=== PATIENT | female | born 1980 | race Caucasian/White ===

== ENCOUNTER → 2016-03-09 | Outpatient (REF) | payer BC, OTHER ==
[~2016-03-09] MED LIST: ALBU17IN INH; IRON325T PO; PRED10TA PO; VITA200038 PO; ZITHTAB PO
[2016-03-09 11:50] LABS: MEAN CORPUSCULAR HEMOGLOBIN 25.4 pg (27.0-33.0); MEAN CORPUSCULAR HGB CONC 31.6 g/dl (32.0-36.5); MEAN CORPUSCULAR VOLUME 80.4 fl (80.0-96.0); RED CELL DISTRIBUTION WIDTH 13.4 % (11.5-14.5); WHITE BLOOD COUNT 7.2 K/mm3 (4.0-10.0)
[2016-03-09 12:31] LABS: ALBUMIN 3.8 GM/DL (3.2-5.2); ALBUMIN/GLOBULIN RATIO 1.15 (1.00-1.93); ALKALINE PHOSPHATASE 87 U/L (45-117); ALT/SGPT 31 U/L (12-78); ANION GAP 12 MEQ/L (8-16); AST/SGOT 16 U/L (15-37); BILIRUBIN,TOTAL 0.5 MG/DL (0.2-1.0); BLOOD UREA NITROGEN 12 MG/DL (7-18); CALCIUM LEVEL 8.6 MG/DL (8.5-10.1); CARBON DIOXIDE LEVEL 25 MEQ/L (21-32); CHLORIDE LEVEL 105 MEQ/L (98-107); GLOMERULAR FILTRATION RATE > 60.0 (>60); GLUCOSE, FASTING 196 MG/DL (70-105); SODIUM LEVEL 142 MEQ/L (136-145); TOTAL PROTEIN 7.1 GM/DL (6.4-8.2)
== END ==
LOC: M SFHCPLAZ 10:12
PROVIDERS: ATTEND Nurse Practitioner Adult Health
DX: Z86.2 Personal history of diseases of the blood and blood-forming organs and certain disorders involving the immune mechanism (principal); R73.9 Hyperglycemia, unspecified; R07.9 Chest pain, unspecified

== ENCOUNTER → 2016-09-06 | Outpatient (REF) | payer BC, OTHER | LOC: M SFHCPLAZ 14:50 | PROVIDERS: ATTEND Nurse Practitioner Adult Health | DX: Z00.00 Encounter for general adult medical examination without abnormal findings (principal); E55.9 Vitamin D deficiency, unspecified; Z86.2 Personal history of diseases of the blood and blood-forming organs and certain disorders involving the immune mechanism; E11.9 Type 2 diabetes mellitus without complications ==

== ENCOUNTER → 2016-09-07 | Outpatient (REF) | payer BC, OTHER ==
[2016-09-07 11:35] LABS: MEAN CORPUSCULAR HEMOGLOBIN 25.5 pg (27.0-33.0); MEAN CORPUSCULAR HGB CONC 31.6 g/dl (32.0-36.5); MEAN CORPUSCULAR VOLUME 80.6 fl (80.0-96.0); RED CELL DISTRIBUTION WIDTH 13.3 % (11.5-14.5); WHITE BLOOD COUNT 7.4 K/mm3 (4.0-10.0)
[2016-09-07 11:54] LABS: ALBUMIN 3.6 GM/DL (3.2-5.2); ALBUMIN/GLOBULIN RATIO 0.97 (1.00-1.93); ALKALINE PHOSPHATASE 77 U/L (45-117); ALT/SGPT 56 U/L (12-78); ANION GAP 4 MEQ/L (8-16); AST/SGOT 52 U/L (15-37); BILIRUBIN,TOTAL 0.5 MG/DL (0.2-1.0); BLOOD UREA NITROGEN 10 MG/DL (7-18); CALCIUM LEVEL 8.6 MG/DL (8.5-10.1); CARBON DIOXIDE LEVEL 30 MEQ/L (21-32); CHLORIDE LEVEL 105 MEQ/L (98-107); CREATININE FOR GFR 0.94 MG/DL (0.55-1.02); FERRITIN 98 NG/ML (8-252); GLOMERULAR FILTRATION RATE > 60.0 (>60); GLUCOSE, FASTING 89 MG/DL (70-105); PERCENT SATURATION 15.9 % (13.2-37.4); POTASSIUM SERUM 4.2 MEQ/L (3.5-5.1); SODIUM LEVEL 139 MEQ/L (136-145); TOTAL IRON BINDING CAPACITY 314 UG/DL (250-450); TOTAL PROTEIN 7.3 GM/DL (6.4-8.2)
== END ==
LOC: M SFHCPLAZ 07:52
PROVIDERS: ATTEND Nurse Practitioner Adult Health
DX: Z00.00 Encounter for general adult medical examination without abnormal findings (principal); Z86.2 Personal history of diseases of the blood and blood-forming organs and certain disorders involving the immune mechanism; E11.9 Type 2 diabetes mellitus without complications; E55.9 Vitamin D deficiency, unspecified

== ENCOUNTER → 2016-12-02 | Outpatient (REF) | payer BC | LOC: M SFHCWAGY 09:49 | PROVIDERS: ATTEND Nurse Practitioner Family | DX: Z12.4 Encounter for screening for malignant neoplasm of cervix (principal); A59.01 Trichomonal vulvovaginitis ==

== ENCOUNTER → 2016-12-02 | Outpatient (REF) | payer BC | LOC: M LAB REF 15:58 | PROVIDERS: ATTEND Nurse Practitioner Family | DX: Z11.3 Encounter for screening for infections with a predominantly sexual mode of transmission (principal) ==

== ENCOUNTER → 2017-03-06 | Outpatient (REF) | payer BC ==
[2017-03-06 12:09] LABS: HEMATOCRIT 38.8 % (36.0-47.0); HEMOGLOBIN 11.9 g/dl (12.0-16.0); MEAN CORPUSCULAR HEMOGLOBIN 24.1 pg (27.0-33.0); MEAN CORPUSCULAR HGB CONC 30.7 g/dl (32.0-36.5); MEAN CORPUSCULAR VOLUME 78.5 fl (80.0-96.0); PLATELET COUNT, AUTOMATED 237 10^3/uL (150-450); RED BLOOD COUNT 4.94 10^6/uL (4.00-5.40); RED CELL DISTRIBUTION WIDTH 14.2 % (11.5-14.5); WHITE BLOOD COUNT 7.3 10^3/uL (4.0-10.0)
[2017-03-06 12:28] LABS: ALBUMIN 3.7 GM/DL (3.2-5.2); ALBUMIN/GLOBULIN RATIO 1.06 (1.00-1.93); ALKALINE PHOSPHATASE 79 U/L (45-117); ALT/SGPT 22 U/L (12-78); ANION GAP 6 MEQ/L (8-16); AST/SGOT 16 U/L (7-37); BILIRUBIN,TOTAL 0.8 MG/DL (0.2-1.0); BLOOD UREA NITROGEN 9 MG/DL (7-18); CALCIUM LEVEL 8.4 MG/DL (8.5-10.1); CARBON DIOXIDE LEVEL 28 MEQ/L (21-32); CHLORIDE LEVEL 105 MEQ/L (98-107); CHOLESTEROL LEVEL 186 MG/DL (<200); CHOLESTEROL RISK RATIO 4.536 (<5); CREATININE FOR GFR 0.92 MG/DL (0.55-1.02); FERRITIN 112 NG/ML (8-252); GLOMERULAR FILTRATION RATE > 60.0 (>60); GLUCOSE, FASTING 110 MG/DL (70-105); HDL CHOLESTEROL 41 MG/DL (>40); IRON (FE) 83 UG/DL (50-170); LDL CHOLESTEROL 127.2 MG/DL (<100); NON-HDL-C 145 MG/DL; PERCENT SATURATION 26.8 % (13.2-45.0); POTASSIUM SERUM 4.3 MEQ/L (3.5-5.1); SODIUM LEVEL 139 MEQ/L (136-145); TOTAL IRON BINDING CAPACITY 310 UG/DL (250-450); TOTAL PROTEIN 7.2 GM/DL (6.4-8.2); TRIGLYCERIDES LEVEL 89 MG/DL (<150)
[2017-03-06 13:30] LABS: MALB URINE SIEMENS 37.9 MG/L; MAU/CREAT RATIO 23.8 MCG/MG (0.0-30.0)
[2017-03-06 15:03] LABS: ESTIMATED AVERAGE GLUCOSE 143 MG/DL (60-110); HEMOGLOBIN A1c 6.6 %
== END ==
LOC: M SFHCPLAZ 08:46
DX: E11.9 Type 2 diabetes mellitus without complications (principal); Z86.2 Personal history of diseases of the blood and blood-forming organs and certain disorders involving the immune mechanism; E78.2 Mixed hyperlipidemia
CPT/HCPCS: 83550

== ENCOUNTER → 2017-09-12 | Outpatient (REF) | payer BC ==
[2017-09-12 11:48] LABS: HEMATOCRIT 39.6 % (36.0-47.0); HEMOGLOBIN 12.4 g/dl (12.0-15.5); MEAN CORPUSCULAR HEMOGLOBIN 24.3 pg (27.0-33.0); MEAN CORPUSCULAR HGB CONC 31.3 g/dl (32.0-36.5); MEAN CORPUSCULAR VOLUME 77.6 fl (80.0-96.0); PLATELET COUNT, AUTOMATED 250 10^3/uL (150-450); RED CELL DISTRIBUTION WIDTH 13.8 % (11.5-14.5); WHITE BLOOD COUNT 6.7 10^3/uL (4.0-10.0)
[2017-09-12 12:24] LABS: CREATININE, URINE 67.9 MG/DL; MALB URINE SIEMENS 9.9 MG/L; MAU/CREAT RATIO 14.5 MCG/MG (0.0-30.0)
[2017-09-12 12:54] LABS: TOTAL 25(OH) VITAMIN D 24.9 NG/ML (30.0-100.0)
[2017-09-12 12:56] LABS: ALBUMIN 3.4 GM/DL (3.2-5.2); ALBUMIN/GLOBULIN RATIO 0.87 (1.00-1.93); ALKALINE PHOSPHATASE 89 U/L (45-117); ALT/SGPT 24 U/L (12-78); ANION GAP 8 MEQ/L (8-16); AST/SGOT 15 U/L (7-37); BILIRUBIN,TOTAL 0.5 MG/DL (0.2-1.0); BLOOD UREA NITROGEN 9 MG/DL (7-18); CALCIUM LEVEL 8.4 MG/DL (8.5-10.1); CARBON DIOXIDE LEVEL 28 MEQ/L (21-32); CHLORIDE LEVEL 107 MEQ/L (98-107); CHOLESTEROL LEVEL 183 MG/DL (<200); CHOLESTEROL RISK RATIO 4.945 (<5); CREATININE FOR GFR 0.95 MG/DL (0.55-1.30); GLOMERULAR FILTRATION RATE > 60.0 (>60); GLUCOSE, FASTING 90 MG/DL (70-100); HDL CHOLESTEROL 37 MG/DL (>40); IRON (FE) 65 UG/DL (50-170); LDL CHOLESTEROL 128.6 MG/DL (<100); NON-HDL-C 146 MG/DL; PERCENT SATURATION 20.9 % (13.2-45.0); POTASSIUM SERUM 4.4 MEQ/L (3.5-5.1); SODIUM LEVEL 143 MEQ/L (136-145); THYROID STIMULATING HORMONE 0.857 uIU/ML (0.358-3.740); TOTAL IRON BINDING CAPACITY 311 UG/DL (250-450); TOTAL PROTEIN 7.3 GM/DL (6.4-8.2); TRIGLYCERIDES LEVEL 87 MG/DL (<150)
[2017-09-12 13:27] LABS: ESTIMATED AVERAGE GLUCOSE 160 MG/DL (60-110); HEMOGLOBIN A1c 7.2 %
== END ==
LOC: M SFHCPLAZ 09:06
DX: E11.9 Type 2 diabetes mellitus without complications (principal); E78.2 Mixed hyperlipidemia; Z86.2 Personal history of diseases of the blood and blood-forming organs and certain disorders involving the immune mechanism; E55.9 Vitamin D deficiency, unspecified
CPT/HCPCS: 83550

== ENCOUNTER → 2018-03-13 | Outpatient (REF) | payer BC ==
[2018-03-13 12:22] LABS: MAU/CREAT RATIO 10.7 MCG/MG (0.0-30.0)
[2018-03-13 12:47] LABS: ALBUMIN 3.7 GM/DL (3.2-5.2); ALT/SGPT 28 U/L (12-78); BILIRUBIN,TOTAL 0.6 MG/DL (0.2-1.0); BLOOD UREA NITROGEN 11 MG/DL (7-18); CALCIUM LEVEL 8.7 MG/DL (8.5-10.1); CARBON DIOXIDE LEVEL 25 MEQ/L (21-32); CHLORIDE LEVEL 103 MEQ/L (98-107); CREATININE FOR GFR 0.93 MG/DL (0.55-1.30); GLOMERULAR FILTRATION RATE > 60.0 (>60); GLUCOSE, FASTING 106 MG/DL (70-100); POTASSIUM SERUM 4.6 MEQ/L (3.5-5.1); SODIUM LEVEL 140 MEQ/L (136-145); TOTAL PROTEIN 7.7 GM/DL (6.4-8.2)
[2018-03-13 13:44] LABS: HEMOGLOBIN A1c 7.7 %
== END ==
LOC: M SFHCPLAZ 08:13
PROVIDERS: ATTEND Nurse Practitioner Adult Health
DX: E11.9 Type 2 diabetes mellitus without complications (principal)

== ENCOUNTER → 2018-03-29 | Outpatient (REF) | payer BC ==
[2018-04-03 14:17] LABS: HPV HYBRID CAPTURE II Positive (Negative)
== END ==
LOC: M SFHCWAGY 12:02
PROVIDERS: ATTEND Nurse Practitioner Family
DX: Z12.4 Encounter for screening for malignant neoplasm of cervix (principal)
CPT/HCPCS: 87624; G0123

== ENCOUNTER → 2018-04-02 | Outpatient (CLI) | payer BC ==
--- NOTE | 2018-04-02 16:36 | REPMRS ---
Patient History The patient states she had a clinical breast exam in 03/17 Family history of breast cancer at age 55 in mother, breast cancer at age 50 or over in maternal aunt, unknown cancer at age 50 or over in paternal grandmother, unknown cancer at age 50 or over in paternal grandfather, unknown cancer at age 39 in paternal aunt. Taking hormonal contraceptives for 11 years. Digital Woman Screen Mammo: April 02, 2018 - Exam #: [id number] Bilateral CC and MLO view(s) were taken. Technologist: Susan Morris, Technologist Prior study comparison: February 08, 2013, digital mammo diagnostic bilateral, performed at [facility]. FINDINGS: There are scattered fibroglandular densities. There has been no change in the appearance of the mammogram from the prior studies. There is a mild amount of scattered fibroglandular density which is fairly symmetric. There is no interval development of dominant mass, architectural distortion, or clustered microcalcification suggestive of malignancy. 3-D tomosynthesis shows no additional findings. Assessment: BI-RADS/ACR category 1 mammogram. Negative Mammogram. Recommendation Breast MRI of both breasts in 6 months. Routine screening mammogram of both breasts in 1 year (for women over age 40). This patient's Lifetime Breast Cancer RIsk is estimated at 22.5 %. Annual screening Breast MRI scanniing is recommended for patient's whose lifetime risk assessment is over 20%. This mammogram was interpreted with the aid of an FDA-approved computer-aided dectection system. Electronically Signed By: Travon Dhillon MD 04/02/18 [id number]
== END ==
LOC: M WHC 14:39
PROVIDERS: ATTEND Nurse Practitioner Family
DX: Z12.31 Encounter for screening mammogram for malignant neoplasm of breast (principal); Z80.3 Family history of malignant neoplasm of breast

== ENCOUNTER → 2018-06-19 | Outpatient (CLI) | payer BC ==
[~2018-06-19] MED LIST changes: +PRED-351 PO; -PRED10TA PO
[2018-06-19 12:27] LABS: HEMOGLOBIN A1c 7.7 %
== END ==
LOC: M LRY 09:50
PROVIDERS: ATTEND Nurse Practitioner Adult Health
DX: E11.9 Type 2 diabetes mellitus without complications (principal)

== ENCOUNTER → 2018-09-11 | Outpatient (REF) | payer BC ==
[2018-09-11 10:34] LABS: ALBUMIN 3.8 GM/DL (3.2-5.2); ALT/SGPT 23 U/L (12-78); BILIRUBIN,TOTAL 0.5 MG/DL (0.2-1.0); BLOOD UREA NITROGEN 14 MG/DL (7-18); CALCIUM LEVEL 8.8 MG/DL (8.5-10.1); CARBON DIOXIDE LEVEL 27 MEQ/L (21-32); CHLORIDE LEVEL 105 MEQ/L (98-107); CHOLESTEROL LEVEL 194 MG/DL (<200); CHOLESTEROL RISK RATIO 5.105 (<5); CREATININE FOR GFR 1.01 MG/DL (0.55-1.30); GLOMERULAR FILTRATION RATE > 60.0 (>60); GLUCOSE, FASTING 124 MG/DL (70-100); HDL CHOLESTEROL 38 MG/DL (>40); LDL CHOLESTEROL 140 MG/DL (<100); NON-HDL-C 156 MG/DL; POTASSIUM SERUM 4.4 MEQ/L (3.5-5.1); SODIUM LEVEL 139 MEQ/L (136-145); TOTAL PROTEIN 7.7 GM/DL (6.4-8.2); TRIGLYCERIDES LEVEL 82 MG/DL (<150)
[2018-09-11 10:35] LABS: TOTAL 25(OH) VITAMIN D 19.5 NG/ML (30.0-100.0)
[2018-09-11 10:38] LABS: MALB URINE SIEMENS 21.1 MG/L; MAU/CREAT RATIO 10.1 MCG/MG (0.0-30.0)
[2018-09-11 11:36] LABS: HEMOGLOBIN A1c 7.7 %
== END ==
LOC: M SFHCPLAZ 07:55
PROVIDERS: ATTEND Nurse Practitioner Adult Health
DX: Z00.00 Encounter for general adult medical examination without abnormal findings (principal); E11.9 Type 2 diabetes mellitus without complications; E55.9 Vitamin D deficiency, unspecified

== ENCOUNTER → 2018-11-13 | Outpatient (REF) | payer BC ==
[2018-11-13 12:20] LABS: BASO # 0.1 10^3/uL (0.0-0.2); BASO % 0.6 % (0.0-1.0); EOS # 0.2 10^3/uL (0.0-0.5); EOS % 2.8 % (0.0-3.0); HEMATOCRIT 38.7 % (36.0-47.0); HEMOGLOBIN 11.8 g/dl (12.0-15.5); LYMPH # 3.1 10^3/uL (1.5-5.0); LYMPH % 37.6 % (24.0-44.0); MEAN CORPUSCULAR HGB CONC 30.5 g/dl (32.0-36.5); MEAN CORPUSCULAR VOLUME 78.7 fl (80.0-96.0); MONO # 0.6 10^3/uL (0.0-0.8); MONO % 7.3 % (0.0-5.0); NEUTROPHILS # 4.3 10^3/uL (1.5-8.5); NEUTROPHILS % 51.5 % (36.0-66.0); PLATELET COUNT, AUTOMATED 232 10^3/uL (150-450); RED BLOOD COUNT 4.92 10^6/uL (4.00-5.40); WHITE BLOOD COUNT 8.3 10^3/uL (4.0-10.0)
== END ==
LOC: M LABDRAWP 08:57
PROVIDERS: ATTEND Orthopaedic Surgery
DX: Z01.818 Encounter for other preprocedural examination (principal); G56.00 Carpal tunnel syndrome, unspecified upper limb

== ENCOUNTER → 2018-12-18 | Outpatient (CLI) | payer BC ==
--- NOTE | 2018-12-18 17:55 | REP ---
BILATERAL MAMMOGRAM WITH 3D TOMOSYNTHESIS, BILATERAL DIAGNOSTIC MAMMOGRAM AND ULTRASOUND: FAMILY HISTORY: Breast cancer in mother at age 48 and maternal aunt at age 50. Micah Aponte lifetime risk of breast cancer 22.9%. COMPARISON: Mammogram 04/02/2018 as well as other prior studies 04/11/2012. Patient reports a palpable lump about 12-o'clock right breast and also in the left axilla. Those areas are marked on the skin with triangular skin markers. The routine and tomographic images show mild to moderate scattered fibroglandular tissue bilaterally which is unchanged. No new mass or clustered microcalcifications are seen. No architectural distortion is seen. Normal appearing axillary lymph nodes are seen bilaterally. No mammographic abnormality is seen in the region of 12-o'clock right breast. Real-time sonographic evaluation of 12-o'clock right breast demonstrates no cystic or solid nodule. Real-time sonographic evaluation of the left axillary region demonstrates a normal appearing lymph node with a fatty hilum measuring 2.9 x 1.0 x 1.5 cm. This is upper limits of normal in size. IMPRESSION: ACR 2 benign. No mass or clustered microcalcifications bilaterally. There is no mammographic or sonographic evidence of a mass at the site of the reported palpable lump 12-o'clock right breast. In the left axillary region at the site of the palpable lump there is a normal appearing lymph node which is upper limits of normal in size at 1 cm in short axis dimension. Given the elevated lifetime risk of breast cancer I would recommend supplemental screening MRI of the breasts. BIRADS 2: BI-RADS/ACR category 2 mammogram. Benign Findings. This mammogram was interpreted with the aid of an FDA-approved computer-aided detection system. The patient states she/he had a clinical breast exam in 11/2018. The patient letter being requested is M2. Electronically Signed by John Reyez MD 12/19/2018 02:17 P
== END ==
LOC: M RAD 14:25
PROVIDERS: ATTEND Nurse Practitioner Family
DX: N63.10 Unspecified lump in the right breast, unspecified quadrant (principal); N63.20 Unspecified lump in the left breast, unspecified quadrant; Z80.3 Family history of malignant neoplasm of breast
CPT/HCPCS: 76642; 77066; G0279

== ENCOUNTER → 2019-01-09 | Outpatient (REF) | payer BC ==
[2019-01-09 16:15] LABS: BLOOD UREA NITROGEN 10 MG/DL (7-18); CREATININE FOR GFR 0.89 MG/DL (0.55-1.30); GLOMERULAR FILTRATION RATE > 60.0 (>60)
== END ==
LOC: M SFHCWAGY 12:13
PROVIDERS: ATTEND Nurse Practitioner Family
DX: Z91.89 Other specified personal risk factors, not elsewhere classified (principal)

== ENCOUNTER → 2019-01-15 | Outpatient (CLI) | payer BC ==
[~2019-01-15] MED LIST changes: +PROHANCE 279.3MG/ML 15ML VIAL (A9576) As Ordered ONE; +PROHANCE 279.3MG/ML 5ML VIAL (A9576) As Ordered ONE
--- NOTE | 2019-01-15 13:35 | REP ---
BILATERAL MRI BREAST WITH AND WITHOUT CONTRAST: Breast cancer in mother at age 48 and maternal aunt at age 50, lifetime risk of breast cancer 22.9% based on Tyrer-Cuzick model. Comparison mammogram 12/18/2018. TECHNIQUE: Multiple sequences obtained in the axial, coronal, and sagittal planes prior to and follow the intravenous administration of 20 mL ProHance. Images are evaluated in the [employer] software including dynamic axial T1 fat sat images, subtraction images, color overlay images, and MIP reconstruction images. There is mild to moderate scattered fibroglandular tissue bilaterally. Multiple tiny cysts subcentimeter in diameter are seen bilaterally, more so on the left than on the right. No axillary adenopathy is seen. There is mild background parenchymal enhancement bilaterally. No suspicious enhancing mass or morphologic abnormality is seen. IMPRESSION: BIRADS category 2 benign bilateral breast MRI. No suspicious enhancing mass or morphologic abnormality. Yearly supplemental screening MRI of the breast is recommended for patients with an elevated lifetime risk of breast cancer 20% or greater, in addition to the annual screening mammogram. Electronically Signed by John Reyez MD 01/16/2019 10:31 A
== END ==
LOC: M RAD 08:59
PROVIDERS: ATTEND Nurse Practitioner Family
DX: N60.11 Diffuse cystic mastopathy of right breast (principal); N60.12 Diffuse cystic mastopathy of left breast; Z91.89 Other specified personal risk factors, not elsewhere classified
CPT/HCPCS: A9576; C8908

== ENCOUNTER → 2019-04-11 | Outpatient (REF) | payer BC ==
[~2019-04-11] MED LIST changes: +ATOR1TAB19 PO; +CELE20TA PO; +FLUT44IN INH; +FOLI1TAB11 PO; +HYDR-3713 PO; +METF-791 PO; -PROHANCE 279.3MG/ML 15ML VIAL (A9576) As Ordered ONE; -PROHANCE 279.3MG/ML 5ML VIAL (A9576) As Ordered ONE; +SING10TA32 PO; +VENTAER INH; +VITA500079 PO; +ZYRTTAB8 PO
== END ==
LOC: M SFHCWAGY 14:34
PROVIDERS: ATTEND Nurse Practitioner Family
DX: R87.810 Cervical high risk human papillomavirus (HPV) DNA test positive (principal); R87.610 Atypical squamous cells of undetermined significance on cytologic smear of cervix (ASC-US)
CPT/HCPCS: 87624; G0123

== ENCOUNTER → 2019-04-11 | Outpatient (CLI) | payer BC ==
[~2019-04-11] MED LIST changes: -HYDR-3713 PO
[2019-04-11 13:41] LABS: HEMATOCRIT 39.4 % (36.0-47.0); HEMOGLOBIN 12.1 g/dl (12.0-15.5); MEAN CORPUSCULAR HEMOGLOBIN 24.3 pg (27.0-33.0); MEAN CORPUSCULAR HGB CONC 30.7 g/dl (32.0-36.5); MEAN CORPUSCULAR VOLUME 79.3 fl (80.0-96.0); PLATELET COUNT, AUTOMATED 224 10^3/uL (150-450); RED BLOOD COUNT 4.97 10^6/uL (4.00-5.40); WHITE BLOOD COUNT 6.3 10^3/uL (4.0-10.0)
[2019-04-11 14:07] LABS: BLOOD UREA NITROGEN 12 MG/DL (7-18); CALCIUM LEVEL 8.7 MG/DL (8.5-10.1); CARBON DIOXIDE LEVEL 30 MEQ/L (21-32); CHLORIDE LEVEL 104 MEQ/L (98-107); CREATININE FOR GFR 0.83 MG/DL (0.55-1.30); GLOMERULAR FILTRATION RATE > 60.0 (>60); GLUCOSE, FASTING 103 MG/DL (70-100); POTASSIUM SERUM 4.5 MEQ/L (3.5-5.1); SODIUM LEVEL 139 MEQ/L (136-145)
[2019-04-11 14:12] LABS: HEMOGLOBIN A1c 7.6 %
== END ==
LOC: M PLALAB 11:15
PROVIDERS: ATTEND Family Medicine
DX: Z01.818 Encounter for other preprocedural examination (principal); E11.9 Type 2 diabetes mellitus without complications; R87.610 Atypical squamous cells of undetermined significance on cytologic smear of cervix (ASC-US); I10 Essential (primary) hypertension
CPT/HCPCS: 36415; 80048; 83036; 85027; 87624; G0123

== ENCOUNTER 2019-04-17 07:39 | Day surgery (SDC) | payer BC ==
[~2019-04-17] VITALS: Ht 180.3 cm; Wt 126.7 kg
[~2019-04-17 07:39] MED LIST changes: +LR 1,000 ML IV ONE; +ceFAZolin SOD 2 GM in IV 1 EA IV ONE
[2019-04-17] MEDS ORDERED: LIDOCAINE 2% INJ 100 MG/5 ML SDV (FOR ANES.) As Ordered ONE (08:03)
[2019-04-17] MEDS ORDERED: fentaNYL 100 MCG/2 ML INJECTION (J3010) As Ordered ONE ×2 (08:03→09:53)
[2019-04-17] MEDS ORDERED: KETOROLAC 60 MG/2 ML VIAL (J1885) As Ordered ONE (08:03)
[2019-04-17] MEDS ORDERED: MIDAZOLAM INJ 2 MG/2 ML VIAL (J2250) As Ordered ONE (08:03)
[2019-04-17] MEDS ORDERED: propofoL 200 MG/20 ML VIAL As Ordered ONE ×4 (08:03→10:00)
[2019-04-17] MEDS ORDERED: ONDANSETRON 4MG/2ML VIAL (J2405) As Ordered ONE (08:03)
[2019-04-17] MEDS ORDERED: dexameTHASONE 4 MG/ML 1ML VIAL (J1100) As Ordered ONE (08:39)
[2019-04-17] MEDS ORDERED: LIDOCAINE 1% MDV 20ML VIAL As Ordered ONE (08:39)
[2019-04-17] MEDS ORDERED: BUPIVACAINE HCL 0.5% 10 ML VIAL As Ordered ONE (08:39)
[2019-04-17] MEDS ORDERED: HYDR-3713 PO (10:08)
[2019-04-17 11:05] VITALS: BP 135/70
--- NOTE | 2019-04-18 08:57 | RO ---
DATE OF SURGERY: 04/17/2019 PREOPERATIVE DIAGNOSIS: Right foot bunion. POSTOPERATIVE DIAGNOSIS: Right foot bunion. PROCEDURES: Right foot bunionectomy with 1st metatarsal osteotomy. SURGEON: Hector Arce DPM VRT MECHANIC: None ANESTHESIA: Monitored anesthesia care with preoperative injection of 15 mL of a 1:1 mixture of 1% lidocaine plain and 0.5% Marcaine plain. ESTIMATED BLOOD LOSS: Minimal. MATERIALS: Arthrex 3.5 headless compression screw, 3-0 and 4-0 Vicryl, and 4-0 nylon. INJECTABLES: 1 mL Decadron 4 mg/mL. COMPLICATION: None. CONDITION: Stable. Karli Pulido is a 38-year-old female who presents to [facility] with painful bunion to her right foot. She presents today for surgical correction. The patient's side and site were identified and marked in the preoperative holding area. Consent was reviewed and obtained. All risks, complications, and alternatives to the procedure were explained to the patient in detail. All questions were answered. DESCRIPTION OF PROCEDURE: The patient was brought to the operating room and placed on the operating room table in supine position. Monitored anesthesia care was delivered by the anesthesia team. A preoperative injection of 15 mL of 1:1 mixture of 1% lidocaine plain and 0.5% Marcaine plain were injected to the right foot. The right foot was prepped and draped in the normal sterile fashion. A tourniquet was applied to the right ankle and inflated at 215 mmHg. A dorsomedial incision was drawn and carried through with a #15 blade. Dissection was carried down to the 1st metatarsophalangeal joint, and capsule was identified. A T capsulotomy was performed, exposing the metatarsal head. Following this, a lateral release was performed, releasing the lateral capsule, adductor tendon, and sesamoidal ligaments. McGlamry elevator was used to release the plantar structures. Following this, the medial eminence was resected with sagittal saw. An osteotomy was performed at the metatarsal head, transposing it laterally. This was fixated with an Arthrex 3.5 headless compression screw. The remaining bone ledge was removed with sagittal saw and smoothed with a rasp. The site was irrigated with normal saline. A wedge of capsule was removed from the medial capsule, and the capsular repair was then performed with 3-0 Vicryl, subcutaneous closure with 4-0 Vicryl, and skin closure with 4-0 nylon. 1 mL Decadron was injected. Sterile dressings were applied. Tourniquet was deflated. The patient was brought to postanesthesia care unit (PACU) with vital signs stable and neurovascular status intact. She will be partial weightbearing with crutches. She will followup in office in 2 days.
== END 2019-04-17 11:10 | disposition home or self-care (01) ==
LOC: M SDC 07:39
PROVIDERS: ATTEND Podiatrist Foot & Ankle Surgery
DX: M20.11 Hallux valgus (acquired), right foot (principal); E11.9 Type 2 diabetes mellitus without complications; M72.2 Plantar fascial fibromatosis; I49.3 Ventricular premature depolarization; E78.00 Pure hypercholesterolemia, unspecified; F41.9 Anxiety disorder, unspecified; F32.9 Major depressive disorder, single episode, unspecified; J45.909 Unspecified asthma, uncomplicated; G47.30 Sleep apnea, unspecified; Q63.0 Accessory kidney; Z91.018 Allergy to other foods; Z79.899 Other long term (current) drug therapy; Z79.51 Long term (current) use of inhaled steroids; Z79.82 Long term (current) use of aspirin
CPT/HCPCS: 28296; 81025; 88300; 97116; C1713; J0690; J1100; J1885; J2250; J2405; J3010

== ENCOUNTER → 2019-12-04 | Outpatient (CLI) | payer BC ==
[~2019-12-04] MED LIST changes: +HYDR-3713 PO; -LR 1,000 ML IV ONE; -METF-791 PO; +METF-838 PO; -ceFAZolin SOD 2 GM in IV 1 EA IV ONE
--- NOTE | 2020-01-13 09:03 | REP ---
INDICATION: BURNING CHEST PAIN COMPARISON: None. TECHNIQUE: PA and lateral. FINDINGS: The mediastinum and cardiac silhouette are normal. The lung muniz are clear and without acute consolidation, effusion, or pneumothorax. The skeletal structures are intact and normal. IMPRESSION: No acute cardiopulmonary process. Note: Examination was originally reported as negative on 12/05/2019 <Electronically signed by Ramon Jaramillo > 01/13/20 [id number]
== END ==
LOC: M WUC 17:09
PROVIDERS: ATTEND Nurse Practitioner Family
DX: R07.89 Other chest pain (principal)

== ENCOUNTER → 2019-12-06 | Outpatient (CLI) | payer BC ==
[2019-12-06 11:03] LABS: ALBUMIN 3.7 GM/DL (3.2-5.2); ALT/SGPT 22 U/L (12-78); BILIRUBIN,TOTAL 1.1 MG/DL (0.2-1.0); BLOOD UREA NITROGEN 13 MG/DL (7-18); CALCIUM LEVEL 8.6 MG/DL (8.5-10.1); CARBON DIOXIDE LEVEL 31 MEQ/L (21-32); CHLORIDE LEVEL 103 MEQ/L (98-107); CHOLESTEROL LEVEL 184 MG/DL (<200); CHOLESTEROL RISK RATIO 3.755 (<5); GLOMERULAR FILTRATION RATE > 60.0 (>60); GLUCOSE, FASTING 111 MG/DL (70-100); HDL CHOLESTEROL 49 MG/DL (>40); LDL CHOLESTEROL 124 MG/DL (<100); NON-HDL-C 135 MG/DL; POTASSIUM SERUM 4.2 MEQ/L (3.5-5.1); SODIUM LEVEL 138 MEQ/L (136-145); TOTAL PROTEIN 7.4 GM/DL (6.4-8.2); TRIGLYCERIDES LEVEL 54 MG/DL (<150)
[2019-12-06 11:04] LABS: TOTAL 25(OH) VITAMIN D 36.3 NG/ML (30.0-100.0)
[2019-12-06 11:21] LABS: HEMOGLOBIN A1c 6.5 %
[2019-12-06 11:27] LABS: MALB URINE SIEMENS 27.9 MG/L
== END ==
LOC: M WUC 08:37
PROVIDERS: ATTEND Nurse Practitioner Adult Health
DX: E55.9 Vitamin D deficiency, unspecified (principal); E11.9 Type 2 diabetes mellitus without complications; E78.2 Mixed hyperlipidemia; E66.9 Obesity, unspecified; Z68.39 Body mass index [BMI] 39.0-39.9, adult

== ENCOUNTER → 2020-01-17 | Outpatient (CLI) | payer SELFPAY | LOC: M LABSMTC 12:36 | PROVIDERS: ATTEND Pediatrics | DX: Z20.828 Contact with and (suspected) exposure to other viral communicable diseases (principal) ==

== ENCOUNTER → 2020-03-09 | Outpatient (REF) | payer BC, OTHER ==
[2020-03-09 13:02] LABS: ALBUMIN 3.6 GM/DL (3.2-5.2); ALT/SGPT 22 U/L (12-78); BILIRUBIN,TOTAL 0.6 MG/DL (0.2-1.0); BLOOD UREA NITROGEN 13 MG/DL (7-18); CALCIUM LEVEL 8.7 MG/DL (8.5-10.1); CARBON DIOXIDE LEVEL 28 MEQ/L (21-32); CHLORIDE LEVEL 105 MEQ/L (98-107); CHOLESTEROL LEVEL 168 MG/DL (<200); CREATININE FOR GFR 0.94 MG/DL (0.55-1.30); GLOMERULAR FILTRATION RATE > 60.0 (>60); GLUCOSE, FASTING 178 MG/DL (70-100); HDL CHOLESTEROL 42 MG/DL (>40); LDL CHOLESTEROL 106 MG/DL (<100); NON-HDL-C 126 MG/DL; POTASSIUM SERUM 4.3 MEQ/L (3.5-5.1); SODIUM LEVEL 139 MEQ/L (136-145); THYROID STIMULATING HORMONE 0.761 uIU/ML (0.358-3.740); TOTAL 25(OH) VITAMIN D 24.5 NG/ML (30.0-100.0); TRIGLYCERIDES LEVEL 98 MG/DL (<150)
[2020-03-09 13:12] LABS: MALB URINE SIEMENS 51.7 MG/L; MAU/CREAT RATIO 21.1 MCG/MG (0.0-30.0)
[2020-03-09 16:05] LABS: HEMOGLOBIN A1c 7.4 %
== END ==
LOC: M SFHCPLAZ 08:19
PROVIDERS: ATTEND Nurse Practitioner Adult Health
DX: Z00.00 Encounter for general adult medical examination without abnormal findings (principal); E78.2 Mixed hyperlipidemia; Z68.39 Body mass index [BMI] 39.0-39.9, adult; E11.9 Type 2 diabetes mellitus without complications; E55.9 Vitamin D deficiency, unspecified; E66.9 Obesity, unspecified

== ENCOUNTER → 2020-03-23 | Outpatient (CLI) | payer BC, OTHER ==
--- NOTE | 2020-03-23 11:27 | REP ---
INDICATION: CHAI DIAG MAMMO/N63.21 LUMP RIGHT BREAST; LUMP RIGHT BREAST. COMPARISON: Mammography comparison mammography February 08, 2013 and December 18, 2018. TECHNIQUE: Bilateral CC and MLO) view(s) were taken. A skin marker is affixed to the skin at the site of the palpable lump in the right breast and diagnostic magnified focal spot-compression images of the right breast were obtained. 3D tomography is obtained. Targeted right breast sonography is obtained. FINDINGS: Scattered fibroglandular elements are seen bilaterally. No suspicious or dominant density is seen. No abnormality is noted at the site of the palpable lump at approximately 12 o'clock position in the right breast or elsewhere on either side. Magnified focal spot-compression images show normal stromal density. No microcalcification or architectural distortion is seen. No worrisome skin change is appreciated. 3-D tomosynthesis shows no additional finding. The Volpara volumetric breast density pattern is B. Targeted right breast sonography: The superior and lateral and axillary tail regions of the right breast are examined sonographically. And the 12 o'clock position, there is a 5 mm simple cyst. Heterogeneous fibroglandular background echotexture is seen. In the right axilla there are 3 small normal appearing lymph nodes with thin cortical margins. No suspicious sonographic finding. IMPRESSION: BIRADS/ACR category benign mammographic and targeted right breast sonographic findings.. This patient's [facility] lifetime breast cancer risk assessment score is 22.7%. This mammogram was interpreted with the aid of an FDA-approved computer-aided detection system. The patient states she had a clinical breast exam in February of 2019.. The patient letter being requested is M2. RECOMMENDATION: Repeat screening mammography recommended 1 year (for women over 40). Patients whose estimated lifetime breast cancer risk assessment is greater than 20% merit annual screening breast MRI. Bilateral screening breast MRI scanning is recommended in 6 months. Clinical follow-up recommended for the palpable lump. <Electronically signed by Travon Dhillon > 03/23/20 [id number]
== END ==
LOC: M WHC 09:13
PROVIDERS: ATTEND Obstetrics & Gynecology
DX: R92.8 Other abnormal and inconclusive findings on diagnostic imaging of breast (principal); N63.31 Unspecified lump in axillary tail of the right breast; N60.01 Solitary cyst of right breast
CPT/HCPCS: 76642; 77066; G0279

== ENCOUNTER → 2020-05-05 | Outpatient (REF) | payer BC, OTHER | LOC: M SFHCWAGY 16:49 | PROVIDERS: ATTEND Nurse Practitioner Women's Health | DX: Z11.3 Encounter for screening for infections with a predominantly sexual mode of transmission (principal) | CPT/HCPCS: 87491; 87591; 87624; G0123 ==

== ENCOUNTER → 2020-05-07 | Outpatient (CLI) | payer BC, OTHER ==
--- NOTE | 2020-05-07 12:19 | REP ---
INDICATION: N63.10 RT BREAST PALPABLE MASS,LT BREAST PAIN. Painful palpable mass at 9 o'clock position in the right breast, 13 cm from the nipple. Palpable mass left lower lateral breast/chest wall. Pain in this area. COMPARISON: Comparison is made with mammography and targeted right breast sonography from 23 March 2020. The prior right breast sonography was performed in the 11-12 o'clock position. Today's study is directed in the palpable area at 9 o'clock. This area, 13 cm from the nipple is in the axillary region.. Bilateral axillary sonography is performed. TECHNIQUE: Targeted bilateral breast sonography is carried out/bilateral axillary sonography. FINDINGS: At the 12 o'clock position in the right breast a small cyst is again seen, 0.5 cm in greatest diameter. This is unchanged. Normal appearing lymph nodes are visible in each axilla with thin cortical margins. No suspicious finding. Scanning in the area of patient's pain and tenderness in the lower axillary regions bilaterally is unremarkable. No suspicious sonographic finding. IMPRESSION: BI-RADS category 2 benign findings. <Electronically signed by Travon Dhillon > 05/07/20 [id number]
== END ==
LOC: M WHC 06:58
PROVIDERS: ATTEND Surgery
DX: N60.01 Solitary cyst of right breast (principal)

== ENCOUNTER → 2020-05-07 | Outpatient (REF) | payer BC, OTHER ==
[2020-05-07 10:58] LABS: BLOOD UREA NITROGEN 11 MG/DL (7-18); CALCIUM LEVEL 9.1 MG/DL (8.5-10.1); CARBON DIOXIDE LEVEL 30 MEQ/L (21-32); CHLORIDE LEVEL 103 MEQ/L (98-107); CREATININE FOR GFR 0.91 MG/DL (0.55-1.30); GLOMERULAR FILTRATION RATE > 60.0 (>60); GLUCOSE, FASTING 171 MG/DL (70-100); POTASSIUM SERUM 4.1 MEQ/L (3.5-5.1); SODIUM LEVEL 138 MEQ/L (136-145)
== END ==
LOC: M PLALAB 08:05
PROVIDERS: ATTEND Surgery
DX: N63.0 Unspecified lump in unspecified breast (principal)

== ENCOUNTER → 2020-05-18 | Outpatient (CLI) | payer BC, OTHER ==
[~2020-05-18] MED LIST changes: +PROHANCE 279.3MG/ML 15ML VIAL As Ordered ONE; +PROHANCE 279.3MG/ML 5ML VIAL As Ordered ONE
--- NOTE | 2020-05-18 17:42 | REP ---
INDICATION: HIGH RISK BREAST CA. COMPARISON: 01/15/2019 MRI, 03/23/2020 mammogram. TECHNIQUE: Three Tejal MRI imaging was performed with a dedicated breast coil. Axial, coronal, and sagittal T1 and T2 weighted scans were obtained with and without fat saturation in the usual fashion. The study includes dynamically acquired post gadolinium-enhanced imaging with image subtraction. Maximum intensity projection and multi planar reformation imaging is included as well. This study is interpreted with the aid of [employer], an FDA approved computer aided detection (CAD) software program, on a dedicated breast MRI workstation. The gadolinium enhancement dose is 20 mL of intravenous ProHance. FINDINGS: There is mild diffuse fibroglandular tissue bilaterally. Several subcentimeter cystic structures are scattered bilaterally. No axillary adenopathy is seen. There is mild background parenchymal enhancement. There is no suspicious enhancing mass or morphologic abnormality bilaterally. IMPRESSION: BI-RADS category 2 benign bilateral breast MRI. No suspicious enhancing mass or morphologic abnormality. Yearly supplemental screening MRI of the breasts is recommended for patients with an elevated lifetime risk of breast cancer of 20% or greater, in addition to annual screening mammography, staggered every 6 months. <Electronically signed by John Reyez > 05/18/20 [id number]
== END ==
LOC: M RAD 15:03
PROVIDERS: ATTEND Surgery
DX: Z91.89 Other specified personal risk factors, not elsewhere classified (principal)
CPT/HCPCS: A9576; C8908

== ENCOUNTER → 2020-05-27 | Outpatient (CLI) | payer BC, OTHER ==
[~2020-05-27] MED LIST changes: -PROHANCE 279.3MG/ML 15ML VIAL As Ordered ONE; -PROHANCE 279.3MG/ML 5ML VIAL As Ordered ONE; +VITA50005 PO
[2020-05-27 16:40] VITALS: BP 142/80
--- NOTE | 2020-05-27 17:13 | REP ---
INDICATION: N63.10 RT BREAST MASS,US GUIDED BIOPSY. COMPARISON: 05/07/2020. TECHNIQUE: Real-time sonographic evaluation of right breast performed. FINDINGS: Ultrasound guidance provided for Dr. Hu who performed ultrasound-guided biopsy at 12 o'clock right breast. IMPRESSION: Ultrasound guidance provided for Dr. Hu who performed ultrasound-guided biopsy at 12 o'clock right breast. RECOMMENDATION: Clinical follow-up. <Electronically signed by John Reyez > 05/27/20 [id number]
--- NOTE | 2020-05-27 17:30 | REP ---
INDICATION: N63.10 RT BREAST MASS,POST US GUIDED BIOPSY. COMPARISON: 03/23/2020. TECHNIQUE: ML and CC views right breast performed. FINDINGS: Biopsy clip is seen at the 1 o'clock position of the right breast. IMPRESSION: Biopsy clip is seen at the 1 o'clock position of the right breast. RECOMMENDATION: Clinical follow-up. <Electronically signed by John Reyez > 05/27/20 [id number]
--- NOTE | 2020-05-30 19:14 | ROOPDOC ---
[facility] Report Of Operation Report of Operation DATE OF PROCEDURE: 05/27/2020 DIAGNOSIS: right breast palpable suspicious lesion PROCEDURE: palpation guided ultrasound assisted biopsy of the right breast palpable suspicious lesion with clip placement SURGEON: Andrew Zabala BLOOD LOSS: minimal COMPLICATIONS: none Lidocaine 1% LOT [id number] Expiration 01/2021 Sodium Bicarbonate 8.4% LOT [id number] Expiration 03/2021 Hydromark clip LOT [id number] Expiration 12/2022 SHAPE : 3 Bx device: BARD [id number] x10 cm LOT [id number] Expiration 02/2021 Informed consent was obtained. The most common risk and possible complications including bleeding, hematoma, bruising, infection, injury to surrounding structures were explained to the patient and the patient expressed understanding. Patient was placed on the bed in the supine position. Appropriate time out was done stating patients name, date of , and the procedure to be performed. Patient confirmed the location of the mass at 12:00 6 CFN. The location of the mass was marked on the skin and also confirmed by me. The right breast was prepped and draped in the usual fashion. The ultrasound was used to assure safe procedure and to keep the biopsy device away from the lung. Plain Lidocaine 1% and 8.4% sodium bicarbonate 10:1 mix was used to anesthetize the skin, the biopsy site and tissues along the anticipated biopsy tract. Small skin incision was made with blade number 11. BARD Marquee 14G cannula with introducer ([id number]) was inserted through the incision and advanced under the ultrasound guidance to position of the palpable mass. I again confirmed with palpation that the biopsy device is immediately adjacent to the palpable lesion. Next, the introducer was removed and BARD Marquee 14G biopsy device was places in the cannula. Pre-biopsy imaging, and post-biopsy imaging were captured. Five good core biopsies were taken at various levels at the area of palpable lesion. Specimen was placed in formaldehyde, labeled with appropriate biopsy site and patients name, and sent to pathology for evaluation. Next, the biopsy device was withdrawn and a clip introducer was inserted into the biopsy site via the cannula. SHAPE 3 Hydromark clip was deployed under sonographic guidance. Post-clip placement image was captured. Manual pressure over the biopsy cavity and tract was held after the clip introducer was withdrawn. No bleeding was noted upon removal of the pressure. Post-biopsy mammogram of the right breast was obtained and showed clip in expected position. Postprocedural dressing was placed. Patient tolerated procedure well. Discharge instructions were discussed with the patient and the patient expressed understanding. ANDREW ZABALA DO May 30, 2020 19:14
== END ==
LOC: M WHCPRO 09:00
PROVIDERS: ATTEND Surgery
DX: N64.1 Fat necrosis of breast (principal); N63.10 Unspecified lump in the right breast, unspecified quadrant

== ENCOUNTER → 2020-06-29 | Outpatient (REF) | payer BC, OTHER | LOC: M SFHCPLAZ 16:54 | PROVIDERS: ATTEND Nurse Practitioner Adult Health | DX: R35.0 Frequency of micturition (principal) ==

== ENCOUNTER → 2020-07-05 | Outpatient (CLI) | payer SELFPAY | LOC: M LABSMTC 08:32 | PROVIDERS: ATTEND Pediatrics | DX: Z20.822 Contact with and (suspected) exposure to COVID-19 (principal) ==

== ENCOUNTER → 2020-07-16 | Outpatient (REF) | payer BC, OTHER | LOC: M SFHCLERA 10:50 | PROVIDERS: ATTEND Nurse Practitioner Family | DX: R39.9 Unspecified symptoms and signs involving the genitourinary system (principal); Z53.9 Procedure and treatment not carried out, unspecified reason ==

== ENCOUNTER → 2020-07-16 | Outpatient (REF) | payer BC, OTHER | LOC: M SFHCLERA 15:56 | PROVIDERS: ATTEND Nurse Practitioner Family | DX: R39.9 Unspecified symptoms and signs involving the genitourinary system (principal) ==

== ENCOUNTER → 2020-07-20 | Outpatient (REF) | payer BC, OTHER ==
[2020-07-20 18:38] LABS: HEMOGLOBIN A1c 12.7 %
[2020-07-20 18:44] LABS: BLOOD UREA NITROGEN 14 MG/DL (7-18); CALCIUM LEVEL 8.9 MG/DL (8.5-10.1); CARBON DIOXIDE LEVEL 24 MEQ/L (21-32); CHLORIDE LEVEL 103 MEQ/L (98-107); CREATININE FOR GFR 0.99 MG/DL (0.55-1.30); GLOMERULAR FILTRATION RATE > 60.0 (>60); GLUCOSE, FASTING 265 MG/DL (70-100); POTASSIUM SERUM 4.2 MEQ/L (3.5-5.1); SODIUM LEVEL 137 MEQ/L (136-145)
== END ==
LOC: M SFHCPLAZ 15:45
PROVIDERS: ATTEND Nurse Practitioner Adult Health
DX: E11.9 Type 2 diabetes mellitus without complications (principal)

== ENCOUNTER → 2020-09-10 | Outpatient (CLI) | payer BC ==
[~2020-09-10] MED LIST changes: +ERGO500029 PO; -VITA50005 PO
[2020-09-10 11:04] LABS: HEMATOCRIT 41.7 % (36.0-47.0); HEMOGLOBIN 12.8 g/dl (12.0-15.5); MEAN CORPUSCULAR HEMOGLOBIN 24.2 pg (27.0-33.0); MEAN CORPUSCULAR HGB CONC 30.7 g/dl (32.0-36.5); PLATELET COUNT, AUTOMATED 228 10^3/uL (150-450); RED BLOOD COUNT 5.28 10^6/uL (4.00-5.40); WHITE BLOOD COUNT 7.1 10^3/uL (4.0-10.0)
[2020-09-10 11:19] LABS: ALBUMIN 3.6 GM/DL (3.2-5.2); ALT/SGPT 24 U/L (12-78); BILIRUBIN,TOTAL 0.5 MG/DL (0.2-1.0); BLOOD UREA NITROGEN 9 MG/DL (7-18); CALCIUM LEVEL 8.5 MG/DL (8.5-10.1); CARBON DIOXIDE LEVEL 30 MEQ/L (21-32); CHLORIDE LEVEL 106 MEQ/L (98-107); CHOLESTEROL LEVEL 193 MG/DL (<200); CHOLESTEROL RISK RATIO 5.078 (<5); GLOMERULAR FILTRATION RATE > 60.0 (>60); GLUCOSE, FASTING 104 MG/DL (70-100); HDL CHOLESTEROL 38 MG/DL (>40); IRON (FE) 50 UG/DL (50-170); LDL CHOLESTEROL 135 MG/DL (<100); NON-HDL-C 155 MG/DL; PERCENT SATURATION 15.7 % (13.2-45.0); POTASSIUM SERUM 4.1 MEQ/L (3.5-5.1); SODIUM LEVEL 139 MEQ/L (136-145); TOTAL IRON BINDING CAPACITY 319 UG/DL (250-450); TOTAL PROTEIN 7.1 GM/DL (6.4-8.2); TRIGLYCERIDES LEVEL 100 MG/DL (<150)
[2020-09-10 11:25] LABS: MALB URINE SIEMENS 27.7 MG/L; MAU/CREAT RATIO 15.6 MCG/MG (0.0-30.0)
[2020-09-10 11:26] LABS: TOTAL 25(OH) VITAMIN D 48.4 NG/ML (30.0-100.0)
[2020-09-10 11:31] LABS: HEMOGLOBIN A1c 8.5 %
== END ==
LOC: M PLALAB 08:30
PROVIDERS: ATTEND Nurse Practitioner Adult Health
DX: E11.9 Type 2 diabetes mellitus without complications (principal); E55.9 Vitamin D deficiency, unspecified; E78.2 Mixed hyperlipidemia; Z68.39 Body mass index [BMI] 39.0-39.9, adult; Z86.2 Personal history of diseases of the blood and blood-forming organs and certain disorders involving the immune mechanism

== ENCOUNTER → 2020-11-18 | Outpatient (CLI) | payer BC ==
--- NOTE | 2020-11-19 14:40 | REP ---
INDICATION: Evaluate for hydro marker position. COMPARISON: Right breast ultrasound, 05/27/2020 TECHNIQUE: 2D ultrasound images in multiple projections were obtained of the area of the biopsy of the right breast. FINDINGS: There is a hydro marker noted at the 12 o'clock position in the right breast. IMPRESSION: Same as findings. <Electronically signed by Olman Davies > 11/19/20 [id number]
== END ==
LOC: M WHC 13:07
PROVIDERS: ATTEND Surgery
DX: N63.15 Unspecified lump in the right breast, overlapping quadrants (principal)

== ENCOUNTER → 2020-11-23 | Outpatient (REF) ==
[2020-11-23 13:51] LABS: RSV AMPLIFICATION POSITIVE (NEGATIVE)
== END ==
LOC: M LABSMTC 11:09
PROVIDERS: ATTEND Pediatrics
DX: Z20.822 Contact with and (suspected) exposure to COVID-19 (principal)

== ENCOUNTER → 2021-02-01 | Outpatient (CLI) | payer BC ==
[2021-02-01 10:40] LABS: HEMATOCRIT 42.3 % (36.0-47.0); MEAN CORPUSCULAR HEMOGLOBIN 24.3 pg (27.0-33.0); MEAN CORPUSCULAR HGB CONC 30.7 g/dl (32.0-36.5); MEAN CORPUSCULAR VOLUME 79.1 fl (80.0-96.0); PLATELET COUNT, AUTOMATED 259 10^3/uL (150-450); RED BLOOD COUNT 5.35 10^6/uL (4.00-5.40); WHITE BLOOD COUNT 7.4 10^3/uL (4.0-10.0)
[2021-02-01 12:04] LABS: MALB URINE SIEMENS 25.8 MG/L; MAU/CREAT RATIO 12.1 MCG/MG (0.0-30.0)
[2021-02-01 12:17] LABS: ALBUMIN 3.8 GM/DL (3.2-5.2); ALT/SGPT 19 U/L (12-78); BILIRUBIN,TOTAL 0.8 MG/DL (0.2-1.0); BLOOD UREA NITROGEN 11 MG/DL (7-18); CALCIUM LEVEL 9.5 MG/DL (8.5-10.1); CARBON DIOXIDE LEVEL 28 MEQ/L (21-32); CHLORIDE LEVEL 104 MEQ/L (98-107); CHOLESTEROL LEVEL 202 MG/DL (<200); CREATININE FOR GFR 0.92 MG/DL (0.55-1.30); FERRITIN 154 NG/ML (8-252); GLOMERULAR FILTRATION RATE > 60.0 (>58); GLUCOSE, FASTING 93 MG/DL (70-100); HDL CHOLESTEROL 44 MG/DL (>40); IRON (FE) 59 UG/DL (50-170); LDL CHOLESTEROL 143 MG/DL (<100); NON-HDL-C 158 MG/DL; PERCENT SATURATION 16.4 % (13.2-45.0); POTASSIUM SERUM 4.3 MEQ/L (3.5-5.1); SODIUM LEVEL 138 MEQ/L (136-145); TOTAL IRON BINDING CAPACITY 360 UG/DL (250-450); TOTAL PROTEIN 7.8 GM/DL (6.4-8.2); TRIGLYCERIDES LEVEL 77 MG/DL (<150)
[2021-02-01 14:03] LABS: HEMOGLOBIN A1c 6.5 %
== END ==
LOC: M PLALAB 08:13
PROVIDERS: ATTEND Nurse Practitioner Adult Health
DX: Z86.2 Personal history of diseases of the blood and blood-forming organs and certain disorders involving the immune mechanism (principal); E11.9 Type 2 diabetes mellitus without complications; E78.2 Mixed hyperlipidemia; E55.9 Vitamin D deficiency, unspecified; Z68.39 Body mass index [BMI] 39.0-39.9, adult

== ENCOUNTER → 2021-05-13 | Outpatient (CLI) | payer OTHER ==
[2021-05-13 11:45] LABS: HEMOGLOBIN 12.3 g/dl (12.0-15.5); MEAN CORPUSCULAR HGB CONC 30.8 g/dl (32.0-36.5); MEAN CORPUSCULAR VOLUME 78.1 fl (80.0-96.0); PLATELET COUNT, AUTOMATED 219 10^3/uL (150-450); RED BLOOD COUNT 5.12 10^6/uL (4.00-5.40); WHITE BLOOD COUNT 5.6 10^3/uL (4.0-10.0)
[2021-05-13 12:28] LABS: MALB URINE SIEMENS 29.3 MG/L; MAU/CREAT RATIO 17.9 MCG/MG (0.0-30.0)
[2021-05-13 14:05] LABS: ALT/SGPT 21 U/L (12-78); BILIRUBIN,TOTAL 0.9 MG/DL (0.2-1.0); BLOOD UREA NITROGEN 9 MG/DL (7-18); CALCIUM LEVEL 9.4 MG/DL (8.5-10.1); CARBON DIOXIDE LEVEL 31 MEQ/L (21-32); CHLORIDE LEVEL 106 MEQ/L (98-107); CHOLESTEROL LEVEL 138 MG/DL (<200); CHOLESTEROL RISK RATIO 3.631 (<5); CREATININE FOR GFR 0.88 MG/DL (0.55-1.30); FERRITIN 155 NG/ML (8-252); GLOMERULAR FILTRATION RATE > 60.0 (>58); GLUCOSE, FASTING 129 MG/DL (70-100); HDL CHOLESTEROL 38 MG/DL (>40); IRON (FE) 55 UG/DL (50-170); LDL CHOLESTEROL 89 MG/DL (<100); NON-HDL-C 100 MG/DL; PERCENT SATURATION 17.5 % (13.2-45.0); POTASSIUM SERUM 4.3 MEQ/L (3.5-5.1); SODIUM LEVEL 141 MEQ/L (136-145); TOTAL IRON BINDING CAPACITY 315 UG/DL (250-450); TOTAL PROTEIN 7.2 GM/DL (6.4-8.2); TRIGLYCERIDES LEVEL 54 MG/DL (<150)
[2021-05-13 14:12] LABS: TOTAL 25(OH) VITAMIN D 29.3 NG/ML (30.0-100.0)
[2021-05-13 16:08] LABS: HEMOGLOBIN A1c 7.6 %
== END ==
LOC: M PLALAB 08:43
PROVIDERS: ATTEND Nurse Practitioner Adult Health
DX: E11.9 Type 2 diabetes mellitus without complications (principal); E55.9 Vitamin D deficiency, unspecified; Z86.2 Personal history of diseases of the blood and blood-forming organs and certain disorders involving the immune mechanism; E78.2 Mixed hyperlipidemia

== ENCOUNTER → 2021-05-13 | Outpatient (CLI) | payer OTHER, SELFPAY | LOC: M WHC 13:06 | PROVIDERS: ATTEND Surgery | DX: Z91.89 Other specified personal risk factors, not elsewhere classified (principal); Z80.3 Family history of malignant neoplasm of breast; Z79.890 Hormone replacement therapy ==

== ENCOUNTER → 2021-11-08 | Outpatient (CLI) | payer OTHER, SELFPAY ==
[2021-11-08 18:41] LABS: BLOOD UREA NITROGEN 13 MG/DL (7-18); CALCIUM LEVEL 8.9 MG/DL (8.5-10.1); CARBON DIOXIDE LEVEL 26 MEQ/L (21-32); CHLORIDE LEVEL 105 MEQ/L (98-107); GLOMERULAR FILTRATION RATE > 60.0 (>58); GLUCOSE, FASTING 224 MG/DL (70-100); SODIUM LEVEL 136 MEQ/L (136-145)
== END ==
LOC: M PLALAB 15:04
PROVIDERS: ATTEND Nurse Practitioner Women's Health
DX: Z01.812 Encounter for preprocedural laboratory examination (principal)

== ENCOUNTER → 2021-11-11 | Outpatient (CLI) | payer OTHER ==
[~2021-11-11] MED LIST changes: +PROHANCE 279.3MG/ML 15ML VIAL ONE; +PROHANCE 279.3MG/ML 5ML VIAL ONE
== END ==
LOC: M PLAIMG 09:30
PROVIDERS: ATTEND Nurse Practitioner Women's Health
DX: R92.2 Inconclusive mammogram (principal); Z91.89 Other specified personal risk factors, not elsewhere classified; Z80.3 Family history of malignant neoplasm of breast
CPT/HCPCS: A9576; C8908

== ENCOUNTER → 2021-12-05 | Outpatient (REF) ==
[~2021-12-05] MED LIST changes: -PROHANCE 279.3MG/ML 15ML VIAL ONE; -PROHANCE 279.3MG/ML 5ML VIAL ONE
== END ==
LOC: M LABSMTC 10:39
PROVIDERS: ATTEND Pediatrics
DX: Z20.822 Contact with and (suspected) exposure to COVID-19 (principal)

== ENCOUNTER → 2022-05-16 | Outpatient (CLI) | payer OTHER, SELFPAY ==
[~2022-05-16] MED LIST changes: +MONT-5 PO; -SING10TA32 PO
[2022-05-16 14:22] LABS: HEMATOCRIT 39.9 % (36.0-47.0); HEMOGLOBIN 12.4 g/dl (12.0-15.5); MEAN CORPUSCULAR HEMOGLOBIN 24.8 pg (27.0-33.0); MEAN CORPUSCULAR HGB CONC 31.1 g/dl (32.0-36.5); MEAN CORPUSCULAR VOLUME 79.8 fl (80.0-96.0); PLATELET COUNT, AUTOMATED 223 10^3/uL (150-450); WHITE BLOOD COUNT 6.9 10^3/uL (4.0-10.0)
[2022-05-16 14:27] LABS: IRON (FE) 59 UG/DL (50-170); PERCENT SATURATION 19.5 % (13.2-45.0); TOTAL IRON BINDING CAPACITY 302 UG/DL (250-425)
[2022-05-16 14:28] LABS: ALBUMIN 3.6 G/DL (3.2-5.2); ALKALINE PHOSPHATASE 92 U/L (46-116); ALT/SGPT 17 U/L (7.0-40); AST/SGOT 12 U/L (<34); BILIRUBIN,TOTAL 0.8 MG/DL (0.3-1.2); BLOOD UREA NITROGEN 10 MG/DL (9-23); CALCIUM LEVEL 8.2 MG/DL (8.5-10.1); CARBON DIOXIDE LEVEL 29 MMOL/L (20-31); CHLORIDE LEVEL 106 MMOL/L (98-107); CHOLESTEROL LEVEL 150 MG/DL (<200); CHOLESTEROL RISK RATIO 4.16 (<5); CREATININE FOR GFR 0.79 MG/DL (0.55-1.30); GLOMERULAR FILTRATION RATE > 60.0 (>58); GLUCOSE, FASTING 124 MG/DL (60-100); POTASSIUM SERUM 4.1 MMOL/L (3.5-5.1); SODIUM LEVEL 141 MMOL/L (136-145); TOTAL PROTEIN 6.9 G/DL (5.7-8.2); TRIGLYCERIDES LEVEL 60 MG/DL (<150)
[2022-05-16 14:29] LABS: FERRITIN 130.3 NG/ML (7.3-270.7)
[2022-05-16 14:36] LABS: HEMOGLOBIN A1c 7.8 % (4.0-6.0)
[2022-05-16 15:26] LABS: CREATININE, URINE 275.3 MG/DL; MAU/CREAT RATIO 7.9 MCG/MG (0.0-30.0)
== END ==
LOC: M PLALAB 09:24
PROVIDERS: ATTEND Nurse Practitioner Adult Health
DX: E11.9 Type 2 diabetes mellitus without complications (principal); Z86.2 Personal history of diseases of the blood and blood-forming organs and certain disorders involving the immune mechanism

== ENCOUNTER → 2022-05-16 | Outpatient (CLI) | payer OTHER, SELFPAY | LOC: M WHC 08:28 | PROVIDERS: ATTEND Nurse Practitioner Women's Health | DX: Z12.31 Encounter for screening mammogram for malignant neoplasm of breast (principal); Z91.89 Other specified personal risk factors, not elsewhere classified; Z80.3 Family history of malignant neoplasm of breast ==